=== PATIENT | male | born 1980 | race Two or more races ===

== ENCOUNTER 2017-08-06 03:24 | Emergency (ER) | payer OTHER ==
[2017-08-06] MEDS ORDERED: IBUPROFEN 400 MG TABLET (FP) PO ONE ×2 (03:59→04:41)
--- NOTE | 2017-08-06 04:02 | PDOC ---
History of Present Illness - General Chief Complaint: Pain Stated Complaint: PAIN IN LEGS, BACK PAIN Time Seen by Provider: 08/06/17 03:50 - History of Present Illness Initial Comments: 08/06/17 04:02 36 year old male c/o left groin pain and left flank pain worse with urination and defecation x 1 week. patient reports worsening pain to b/l thighs with laying down than standing. Patient is an everyday smoker. 08/06/17 06:41 Past History - Past Medical History Allergies/Adverse Reactions: Allergies Allergy/AdvReac Type Severity Reaction Status Date / Time No Known Allergies Allergy Verified 08/06/17 03:39 Home Medications: Ambulatory Orders Cefpodoxime Proxetil [Vantin -] 200 mg PO Q12H #20 tablet 08/06/17 Metronidazole [Flagyl -] 500 mg PO TID #30 tablet 08/06/17 - Suicide/Smoking/Psychosocial Hx Smoking History: Current every day smoker Have you smoked in the past 12 months: No Number of Cigarettes Smoked Daily: 20 Information on smoking cessation initiated: No 'Breaking Loose' booklet given: 04/25/15 Hx Alcohol Use: No Drug/Substance Use Hx: No Substance Use Type: None Review of Systems - Review of Systems Able to Perform ROS?: Yes Is the patient limited Mongolian proficient: No : Yes: Flank Pain (left ) *Physical Exam - Vital Signs Last Vital Signs Temp Pulse Resp BP Pulse Ox 98.7 F 83 14 132/76 96 08/06/17 03:39 08/06/17 03:39 08/06/17 03:39 08/06/17 03:39 08/06/17 03:39 - Physical Exam General Appearance: Yes: Appropriately Dressed Cardiovascular: positive: Regular Rhythm, Regular Rate Gastrointestinal/Abdominal: positive: Normal Bowel Sounds, Soft. negative: Tender Male Genitalia: positive: normal genitalia. negative: testicular tenderness, inguinal hernia, CVAT Musculoskeletal: positive: Normal Inspection Extremity: positive: Normal Capillary Refill, Normal Inspection, Normal Range of Motion Integumentary: positive: Normal Color, Dry, Warm Neurologic: positive: Fully Oriented, Alert, Normal Mood/Affect Progress Note - Progress Note Progress Note: A: left flank pain/ colitis P: UA UCX spiral CT: mild colitis pain control cefpodoxime and flagyl *DC/Admit/Observation/Transfer Diagnosis at time of Disposition: Colitis - Discharge Dispostion Disposition: HOME - Prescriptions Prescriptions: Metronidazole [Flagyl -] 500 mg PO TID #30 tablet Cefpodoxime Proxetil [Vantin -] 200 mg PO Q12H #20 tablet - Referrals Referrals: STAFF,NOT ON [Primary Care Provider] - - Patient Instructions Printed Discharge Instructions: DI for Colitis Additional Instructions: drink plenty of fluids take cefpodoxime and flagyl as prescribed. follow up with your doctor as soon as possible. return to the ER if symptoms worsen. - Post Discharge Activity Forms/Work/School Notes: Back to Work
[2017-08-06 04:15] VITALS: BP 132/76; PULSE 83; TEMP 98.7; BMI 34.0
[2017-08-06 04:58] LABS: URINE APPEARANCE CLEAR; URINE BILIRUBIN NEGATIVE (NEGATIVE); URINE BLOOD NEGATIVE (NEGATIVE); URINE COLOR YELLOW; URINE GLUCOSE (UA) NEGATIVE (NEGATIVE); URINE KETONE NEGATIVE (NEGATIVE); URINE LEUK ESTERASE NEGATIVE (NEGATIVE); URINE NITRITE NEGATIVE (NEGATIVE); URINE PROTEIN NEGATIVE (NEGATIVE); URINE UROBILINOGEN NEGATIVE mg/dL (0.2-1.0)
[2017-08-06] MEDS ORDERED: metroNIDAZOLE 500 MG TABLET PO ONE (06:38)
[2017-08-06] MEDS ORDERED: CEFPODOXIME PROXETIL 100 MG TABLET PO ONE (06:38)
[2017-08-06] MEDS ORDERED: metroNIDAZOLE 250 MG TABLET ONE (06:50)
== END 2017-08-06 07:07 | disposition home or self-care (01) ==
LOC: JER 03:24
DX: K52.9 Noninfective gastroenteritis and colitis, unspecified (principal); F17.210 Nicotine dependence, cigarettes, uncomplicated
CPT/HCPCS: 74176; 81003; 87086; 99281-25

== ENCOUNTER 2021-09-03 17:04 | Emergency (ER) | payer OTHER ==
[2021-09-03 17:25] VITALS: BP 114/69; PULSE 90; TEMP 98.7; BMI 34.0
[2021-09-03] MEDS ORDERED: IBUPROFEN 600 MG TABLET (FP) PO ONE ×2 (17:59→18:07)
== END 2021-09-03 19:32 | disposition home or self-care (01) ==
LOC: JER 17:04
PROC: 2W3QX1Z Immobilization of Right Lower Leg using Splint (ICD-10-PCS; principal; 2021-09-03)
DX: S93.491A Sprain of other ligament of right ankle, initial encounter (principal); W10.1XXA Fall (on)(from) sidewalk curb, initial encounter; Y93.01 Activity, walking, marching and hiking
CPT/HCPCS: 29515; 73060-TC-RT-FY; 73590-TC-RT-FY; 73610-TC-RT-FY; 73630-TC-RT-FY; 99285-25

== ENCOUNTER 2022-10-25 00:40 | Emergency (ER) | payer OTHER ==
[2022-10-25 01:01] VITALS: RESP 18; BMI 34.0
[2022-10-25] MEDS ORDERED: SODIUM CHLORIDE 0.9% 500 ML INFUS.BAG IV ONE (02:29)
[2022-10-25] MEDS ORDERED: MAG HYDROX/AL HYDROX/SIMETH 30 ML UNIT-DOSE CUP PO ONE (02:29)
[2022-10-25] MEDS ORDERED: ACETAMINOPHEN 1000 MG/100 ML BAG IVPB ONE (02:29)
[2022-10-25] MEDS ORDERED: FAMOTIDINE 20 MG/50 ML IVPB 20 MG/50 ML MG IVPB ONE ×2 (02:29→03:17)
[2022-10-25] MEDS ORDERED: ACETAMINOPHEN INJECTION 100 ML IVPB ONE (03:08)
[2022-10-25] MEDS ORDERED: MAG HYDROX/AL HYDROX/SIMETH 30 ML UNIT-DOSE CUP ONE (03:17)
[2022-10-25 03:28] LABS: BASO % 0.5 % (0-2.0); EOS % 2.3 % (0-4.5); HEMOGLOBIN 15.1 GM/dL (11.7-16.9); LYMPH % 37.9 % (8-40); MCH 29.6 pg (25.7-33.7); MCHC 33.5 g/dl (32.0-35.9); MEAN CELL VOLUME 88.3 fl (80-96); MEAN PLT VOLUME 8.3 fl (7.5-11.1); MONO % 7.6 % (3.8-10.2); NEUT % 51.7 % (42.8-82.8); PLATELET COUNT 309 10^3/uL (134-434); RDW 13.3 % (11.9-15.9); WHITE BLOOD COUNT 9.9 K/mm3 (4.0-10.0)
[2022-10-25 03:46] LABS: ALBUMIN 3.8 g/dl (3.4-5.0); BLOOD UREA NITROGEN 5.4 mg/dL (7-18)
[2022-10-25 03:49] LABS: CREATININE 0.9 mg/dL (0.55-1.3)
[2022-10-25 03:50] LABS: BILIRUBIN,TOTAL 0.7 mg/dL (0.2-1); TOT PROT 6.7 g/dl (6.4-8.2)
[2022-10-25] MEDS ORDERED: KETOROLAC TROMETHAMINE 15 MG/ML VIAL IVPUSH ONE (04:34)
[2022-10-25] MEDS ORDERED: KETOROLAC TROMETHAMINE 15 MG/ML VIAL ONE (04:44)
[2022-10-25 07:55] VITALS: BP 115/65; PULSE 68; TEMP 98.2
== END 2022-10-25 08:07 | disposition home or self-care (01) ==
LOC: JER 00:40
PROC: 3E033GC Introduction of Other Therapeutic Substance into Peripheral Vein, Percutaneous Approach (ICD-10-PCS; principal; 2022-10-25)
DX: R07.89 Other chest pain (principal)
CPT/HCPCS: 0241U-QW; 36415; 71046-TC-FY; 80053; 83690; 84484; 85025; 85379; 93005; 93010; 99285-25

== ENCOUNTER 2023-03-05 13:51 | Emergency (ER) | payer OTHER ==
[2023-03-05 13:55] VITALS: BP 134/76; PULSE 73; RESP 18; TEMP 99; BMI 34.7
[2023-03-05] MEDS ORDERED: IBUPROFEN 600 MG TABLET (FP) PO ONE ×2 (15:27→15:29)
== END 2023-03-05 16:15 | disposition home or self-care (01) ==
LOC: JERFT 13:51
DX: M25.521 Pain in right elbow (principal)
CPT/HCPCS: 73070-TC-RT-FY; 99283-25

== ENCOUNTER 2024-05-05 22:29 | Emergency (ER) | payer OTHER ==
[2024-05-05 22:33] VITALS: BP 109/65; PULSE 90; RESP 18; TEMP 99.2; BMI 36.6
[2024-05-05] MEDS ORDERED: METHOCARBAMOL 500 MG TABLET ONE (23:09)
[2024-05-05] MEDS ORDERED: LIDOCAINE 4% PATCH TP ONE (23:09)
[2024-05-05] MEDS ORDERED: KETOROLAC TROMETHAMINE 15 MG/ML VIAL ONE (23:10)
[2024-05-05] MEDS ORDERED: ACETAMINOPHEN 500 MG TABLET (FP) ONE (23:17)
[2024-05-05] MEDS: KETOROLAC TROMETHAMINE 30 MG/1 ML VIAL IM ONE (23:20)
[2024-05-05] MEDS: LIDOCAINE 4% PATCH TP ONE (23:20)
[2024-05-05] MEDS: LIDOCAINE PATCH REMOVAL MC SCH (23:20)
[2024-05-05] MEDS: ACETAMINOPHEN 500 MG TABLET (FP) PO ONE (23:20)
[2024-05-05] MEDS: METHOCARBAMOL 500 MG TABLET PO ONE (23:20)
== END 2024-05-06 01:03 | disposition home or self-care (01) ==
LOC: JER 22:29
PROC: 3E0133Z Introduction of Anti-inflammatory into Subcutaneous Tissue, Percutaneous Approach (ICD-10-PCS; principal; 2024-05-05)
DX: R10.32 Left lower quadrant pain (principal)
CPT/HCPCS: 73502-TC-LT-FY; 96372; 99284-25